=== PATIENT | female | born 1995 | race Caucasian/White ===

== ENCOUNTER 2023-02-17 23:25 | Emergency (ER) | payer MEDICAID ==
[~2023-02-17] VITALS: Ht 154.9 cm; Wt 70.0 kg
[2023-02-17 23:30] VITALS: BP 119/87; PULSE 83; RESP 18; TEMP 98; O2SAT 96
[2023-02-18] MEDS ORDERED: ibuprofen tablet 400 MG TABLET PO ONE (02:40)
[2023-02-18] MEDS ORDERED: amox tr/potassium clavulanate 875/125mg TAB PO ONE (02:40)
[2023-02-18] MEDS ORDERED: AMOX-117 PO (02:58)
[2023-02-18] MEDS ORDERED: IBUP-1984 PO (02:58)
== END 2023-02-18 03:09 | disposition home or self-care (01) ==
LOC: ER 23:26
DX: H66.92 Otitis media, unspecified, left ear (principal); F17.200 Nicotine dependence, unspecified, uncomplicated; Z79.899 Other long term (current) drug therapy; Z87.448 Personal history of other diseases of urinary system
CPT/HCPCS: 70450; 72125; 99284; 99285

== ENCOUNTER 2023-03-15 17:24 | Emergency (ER) | payer MEDICAID ==
[~2023-03-15] VITALS: Ht 154.9 cm; Wt 68.2 kg
[2023-03-15 17:39] VITALS: BP 108/72; TEMP 97.9
[2023-03-15 18:32] LABS: BASOPHILS # (AUTO) 0.1 X10'3 (0-0.2); BASOPHILS % (AUTO) 0.6 % (0-1); EOSINOPHILS # (AUTO) 0.5 X10'3 (0-0.9); EOSINOPHILS % (AUTO) 5.4 % (0-6); HEMATOCRIT 42.5 % (35.0-45.0); HEMOGLOBIN 14.2 g/dl (12.0-16.0); LYMPHOCYTES # (AUTO) 2.6 X10'3 (1.1-4.8); MEAN CORPUSCULAR HEMOGLOBIN 28.3 PG (27.0-31.0); MEAN CORPUSCULAR HGB CONC 33.3 g/dL (33.0-36.5); MEAN PLATELET VOLUME 7.5 FL (7.4-10.4); MONOCYTES # (AUTO) 0.5 X10'3 (0-0.9); NEUTROPHILS # (AUTO) 5.5 X10'3 (1.8-7.7); PLATELET COUNT 296 X10'3 (140-440); RED BLOOD COUNT 5.01 X10'6 (4.20-5.60); RED CELL DISTRIBUTION WIDTH 13.7 % (11.5-14.5); WHITE BLOOD COUNT 9.1 X10'3 (4.5-11.0)
[2023-03-15 18:43] LABS: ALANINE AMINOTRANSFERASE 24 U/L (12-78); ALBUMIN 3.5 G/DL (3.4-5.0); ALKALINE PHOSPHATASE 116 IU/L (46-116); ANION GAP 7 (8-16); ASPARTATE AMINO TRANSFERASE 37 U/L (10-37); BILIRUBIN,TOTAL 0.1 MG/DL (0.1-1.0); BLOOD UREA NITROGEN 9 MG/DL (7-18); BUN/CREATININE RATIO 8.7 (10.0-20.0); CALCIUM 8.8 MG/DL (8.5-10.1); CHLORIDE 104 MMOL/L (99-107); CREATININE 1.03 MG/DL (0.40-0.90); GLUCOSE 93 MG/DL (70-104); PRO BRAIN NATRIURETIC PEPTIDE 108 PG/ML (0-125); SODIUM 142 MMOL/L (135-145); TOTAL PROTEIN 7.1 G/DL (6.4-8.2); eCRCL 61 ML/MIN; eGFR 64 ML/MIN
[2023-03-15] MEDS ORDERED: predniSONE 20 mg tablet PO ONE (19:30)
[2023-03-15] MEDS ORDERED: ALBU90AE INH (19:33)
[2023-03-15] MEDS ORDERED: PRED20TA PO (19:33)
[2023-03-15] MEDS ORDERED: BECL7.3A INH (19:33)
[2023-03-15] MEDS ORDERED: albuterol 2.5 MG/3 ML nebule NEB ONE (20:10)
[2023-03-15 20:20] VITALS: PULSE 81; RESP 22; O2SAT 98
[2023-03-15 20:33] VITALS: PULSE 98; RESP 20; O2SAT 100
[2023-03-15] MEDS ORDERED: INHA1EAC16 MC (20:40)
== END 2023-03-15 21:12 | disposition home or self-care (01) ==
LOC: ER 17:25
DX: J45.909 Unspecified asthma, uncomplicated (principal)
CPT/HCPCS: 36415; 71045; 80053; 83880; 84484; 85025; 93005; 94640; 99285; J7512; 94760